=== PATIENT | female | born 1990 | race Caucasian/White ===

== ENCOUNTER 2018-06-07 16:42 | Emergency (ER) | payer OTHER ==
[2018-06-07 16:55] VITALS: TEMP 97.7
[2018-06-07] MEDS ORDERED: SODIUM CHLORIDE 0.9% 1,000 ML IV STA (17:11)
--- NOTE | 2018-06-07 17:45 | ED ---
Abdominal Pain HPI - General Chief Complaint: Abdominal Pain Stated Complaint: abdominal pain Time Seen by Provider: 06/07/18 17:07 Source: patient Mode of arrival: ambulatory Limitations: no limitations - History of Present Illness Initial Comments: 27-year-old female just past medical history to presenting today for chief complaint of right lower pelvic cramping x 3+ weeks on and off. Patient states that she has had pelvic cramping since her last period which was from May 06 to the . She states that she has had some recent spotting, however has not had full/normal menstruation, she states the pain she has been experiencing in the right lower pelvis following her last period seemed to stick around occurring on and off. She states that with the spotting that past 2 days she has had increased cramping and some mild low back pain-she states it feels consistent with menstruation but slightly increased in intensity, as well as nausea and mild diarrhea, seeing her stools are softer than normal. Patient denies any melena or hematochezia. Patient denies a history of ectopic . She states she was concerned about a spontaneous , or possible ectopic and presented to the emergency department today for evaluation. Upon arrival patient appears comfortable, patient is not writhing in pain she is sitting comfortably patient denies increased pain with ambulation. Remaining ROS (-), patient denies any recent fever, chills, vaginal discharge or odor, shortness of breath, chest pain, pain, vomiting, numbness or tingling, dysuria or hematuria, constipation, headaches or visual changes, or any other complaints. - Related Data Home Medications Medication Instructions Recorded Confirmed No Known Home Medications 06/07/18 06/07/18 Allergies Allergy/AdvReac Type Severity Reaction Status Date / Time Sulfa (Sulfonamide Allergy Unknown Unknown Verified 06/07/18 17:13 Antibiotics) Childhood Review of Systems ROS Statement: Those systems with pertinent positive or pertinent negative responses have been documented in the HPI. ROS Other: All systems not noted in ROS Statement are negative. Past Medical History Past Medical History: No Reported History Additional Past Medical History / Comment(s): Obstetric history: Her first she delivered in 2009, 8#9oz at 40 weeks. Her second was a spontaneous miscarriage. This is her third and she has had care with me since 15 weeks gestation. A neg, abs neg, Rub Imm, RPR NR, Hep B neg. She received rhogam on 09/07/13 and had a normal anatomy US at 18 weeks. EDC was based on a 16 week US. History of Any Multi-Drug Resistant Organisms: None Reported Additional Past Surgical History / Comment(s): myringotomy with tube placement Past Anesthesia/Blood Transfusion Reactions: No Reported Reaction Past Psychological History: No Psychological Hx Reported Smoking Status: Current every day smoker Past Alcohol Use History: Occasional Past Drug Use History: Marijuana General Exam - General Exam Comments Initial Comments: General: The patient is awake and alert, in no distress, and does not appear acutely ill. Eye: +3 mm pupils are equal, round and reactive to light, extra-ocular movements are intact. No nystagmus. There is normal conjunctiva bilaterally. No signs of icterus. Ears, nose, mouth and throat: There are moist mucous membranes and no oral lesions. Neck: The neck is supple, there is no tenderness or JVD. Cardiovascular: There is a regular rate and rhythm. No murmur, rub or gallop is appreciated. Respiratory: Lungs are clear to auscultation, respirations are non-labored, breath sounds are equal. No wheezes, stridor, rales, or rhonchi. Gastrointestinal: No noted diaphoresis, jaundice, pallor, protecting postures or squirming. Symmetrical pigmentation of abdomen without signs of inflammation.. Umbilicus mildline, inverted without swelling. No dilated veins. No noted abdominal distention. No visible masses. No peristalsis, aortic pulsations, or ventral hernia. Bowel sounds audible in all 4 quadrants, unremarkable. Patient is tender to deep palpation of the right lower pelvic region. Liver edge, not palpable. Spleen edge, right and left kidney not palpable. Superior bladder margin non-tender. Special Testing: Negative [place], Rovsing, McBurney, Glenn, cutaneous hyperesthesia. Negative Heel Jar test. No CVA tenderness. Digital rectal exam deferred. Negative tierney turners or cullens sign Pelvic Exam: Normal female hair pattern, no external lesions. Vaginal mucosa pink and moist well rugated. No edema. Cervical os closed. No discharge coming from os. Small amount of thin clear to white discharge in vault, no vaginal bleeding. no cervical motion tenderness. No adnexal tenderness. Musculoskeletal: Normal ROM, no tenderness. Strength 5/5. Sensation intact. Pulses equal bilaterally 2+. Neurological: A&O x 3. CN II-XII intact, There are no obvious motor or sensory deficits. Coordination appears grossly intact. Speech is normal. Skin: Skin is warm and dry and no rashes or lesions are noted. Psychiatric: Cooperative, appropriate mood & affect, normal judgment. Limitations: no limitations Course Vital Signs 06/07/18 06/07/18 16:52 19:53 Temperature 97.7 F Pulse Rate 92 89 Respiratory 18 16 Rate Blood Pressure 119/56 105/67 O2 Sat by Pulse 98 97 Oximetry Medical Decision Making - Medical Decision Making 27-year-old female with no significant past medical history presenting today for chief complaint of right lower pelvic pain. Pelvic ultrasound did reveal a probable hemorrhagic cyst of the right side. Patient did not have significant tenderness on pelvic examination, no adnexal tenderness concerning for serious acute process. The patient had benign abdominal exam. Ultrasound of the appendix was obtained revealing a 4mm tubular structure there is no evidence of fecalith and or inflammatory signs or symptoms. I had very low suspicion for appendicitis. Patient does not have leukocytosis., Afebrile. At this time I do feel ovarian cyst of the right side most likely cause of patient's pain, patient is around the time of menses according to last recorded period. At this time I do feel patient is stable for discharge with [employer] and primary care follow-up. Return parameters were discussed at length the patient verbalized understanding. I did discuss this case with attending provider Dr. Solis, he agreed depression plan given presentation of patient. Patient discharged in stable condition appearing well. - Lab Data Result diagrams: 06/07/18 17:38 06/07/18 17:38 Lab Results 06/07/18 06/07/18 06/07/18 Range/Units 17:38 17:38 17:38 WBC 8.2 (3.8-10.6) k/uL RBC 5.17 (3.80-5.40) m/uL Hgb 15.3 (11.4-16.0) gm/dL Hct 46.9 H (34.0-46.0) % MCV 90.8 (80.0-100.0) fL MCH 29.6 (25.0-35.0) pg MCHC 32.5 (31.0-37.0) g/dL RDW 12.0 (11.5-15.5) % Plt Count 361 (150-450) k/uL Neutrophils % 70 % Lymphocytes % 21 % Monocytes % 5 % Eosinophils % 1 % Basophils % 1 % Neutrophils # 5.8 (1.3-7.7) k/uL Lymphocytes # 1.7 (1.0-4.8) k/uL Monocytes # 0.4 (0-1.0) k/uL Eosinophils # 0.1 (0-0.7) k/uL Basophils # 0.1 (0-0.2) k/uL Sodium 141 (137-145) mmol/L Potassium 4.2 (3.5-5.1) mmol/L Chloride 104 (98-107) mmol/L Carbon Dioxide 26 (22-30) mmol/L Anion Gap 11 mmol/L BUN 13 (7-17) mg/dL Creatinine 0.65 (0.52-1.04) mg/dL Est GFR (CKD-EPI)AfAm >90 (>60 ml/min/1.73 sqM) Est GFR (CKD-EPI)NonAf >90 (>60 ml/min/1.73 sqM) Glucose 90 (74-99) mg/dL Calcium 10.6 H (8.4-10.2) mg/dL Total Bilirubin 1.2 (0.2-1.3) mg/dL AST 19 (14-36) U/L ALT 30 (9-52) U/L Alkaline Phosphatase 55 (38-126) U/L Total Protein 8.1 (6.3-8.2) g/dL Albumin 4.9 (3.5-5.0) g/dL Amylase 236 H (30-110) U/L Lipase 45 (23-300) U/L Urine Color Urine Appearance (Clear) Urine pH (5.0-8.0) Ur Specific [place] (1.001-1.035) Urine Protein (Negative) Urine Glucose (UA) (Negative) Urine Ketones (Negative) Urine Blood (Negative) Urine Nitrite (Negative) Urine Bilirubin (Negative) Urine Urobilinogen (<2.0) mg/dL Ur Leukocyte Esterase (Negative) Ur Squamous Epith Cells (0-4) /hpf Urine Bacteria (None) /hpf Urine Mucus (None) /hpf Urine HCG, Qual Not Detected (Not Detectd) Trichomonas Ag (Rapid) (Negative) 06/07/18 06/07/18 Range/Units 17:38 19:00 WBC (3.8-10.6) k/uL RBC (3.80-5.40) m/uL Hgb (11.4-16.0) gm/dL Hct (34.0-46.0) % MCV (80.0-100.0) fL MCH (25.0-35.0) pg MCHC (31.0-37.0) g/dL RDW (11.5-15.5) % Plt Count (150-450) k/uL Neutrophils % % Lymphocytes % % Monocytes % % Eosinophils % % Basophils % % Neutrophils # (1.3-7.7) k/uL Lymphocytes # (1.0-4.8) k/uL Monocytes # (0-1.0) k/uL Eosinophils # (0-0.7) k/uL Basophils # (0-0.2) k/uL Sodium (137-145) mmol/L Potassium (3.5-5.1) mmol/L Chloride (98-107) mmol/L Carbon Dioxide (22-30) mmol/L Anion Gap mmol/L BUN (7-17) mg/dL Creatinine (0.52-1.04) mg/dL Est GFR (CKD-EPI)AfAm (>60 ml/min/1.73 sqM) Est GFR (CKD-EPI)NonAf (>60 ml/min/1.73 sqM) Glucose (74-99) mg/dL Calcium (8.4-10.2) mg/dL Total Bilirubin (0.2-1.3) mg/dL AST (14-36) U/L ALT (9-52) U/L Alkaline Phosphatase (38-126) U/L Total Protein (6.3-8.2) g/dL Albumin (3.5-5.0) g/dL Amylase (30-110) U/L Lipase (23-300) U/L Urine Color Light Yellow Urine Appearance Cloudy H (Clear) Urine pH 5.5 (5.0-8.0) Ur Specific [place] 1.004 (1.001-1.035) Urine Protein Negative (Negative) Urine Glucose (UA) Negative (Negative) Urine Ketones Negative (Negative) Urine Blood Negative (Negative) Urine Nitrite Negative (Negative) Urine Bilirubin Negative (Negative) Urine Urobilinogen <2.0 (<2.0) mg/dL Ur Leukocyte Esterase Moderate H (Negative) Ur Squamous Epith Cells 3 (0-4) /hpf Urine Bacteria Occasional H (None) /hpf Urine Mucus Rare H (None) /hpf Urine HCG, Qual (Not Detectd) Trichomonas Ag (Rapid) Negative (Negative) Disposition Clinical Impression: Hemorrhagic cyst of right ovary, Pelvic pain Disposition: HOME SELF-CARE Condition: Good Instructions (If sedation given, give patient instructions): Ovarian Cyst (ED) Additional Instructions: Please use medication as discussed. Please follow-up with family doctor in the next 2 days, please follow-up with OBGYN in next week. Please return to emergency room if the symptoms increase or worsen or for any other concerns. Is patient prescribed a controlled substance at d/c from ED?: No Referrals: Carlos Cooper MD [Primary Care Provider] - 1-2 days Tran Holman DO [Doctor of Osteopathic Medicine] - 1-2 days Time of Disposition: 19:25
[2018-06-07 17:52] LABS: Basophils # (A) 0.1 k/uL (0-0.2); Basophils % (A) 1 %; Eosinophils # (A) 0.1 k/uL (0-0.7); Eosinophils % (A) 1 %; HCT 46.9 % (34.0-46.0); HGB 15.3 gm/dL (11.4-16.0); Lymphocytes # (A) 1.7 k/uL (1.0-4.8); Lymphocytes % (A) 21 %; MCH 29.6 pg (25.0-35.0); MCHC 32.5 g/dL (31.0-37.0); MCV 90.8 fL (80.0-100.0); Mean Platelet Volume 6.8; Monocytes # (A) 0.4 k/uL (0-1.0); Monocytes % (A) 5 %; Neutrophils # (A) 5.8 k/uL (1.3-7.7); Neutrophils % (A) 70 %; Platelet Count 361 k/uL (150-450); RBC 5.17 m/uL (3.80-5.40); WBC 8.2 k/uL (3.8-10.6)
[2018-06-07 17:56] LABS: Appearance,Urine Cloudy (Clear); Bacteria,Urine Occasional /hpf; Bilirubin,Urine Negative (Negative); Blood,Urine Negative (Negative); Color,Urine Light Yellow; Glucose,Urine (UA) Negative (Negative); Ketones,Urine Negative (Negative); Leukocyte Esterase,Urine Moderate (Negative); Mucus,Urine Rare /hpf; Nitrite,Urine Negative (Negative); PH, Urine 5.5 (5.0-8.0); Protein,Urine Negative (Negative); Specific Gravity,Urine 1.004 (1.001-1.035); Squamous Epithelial Cell,Urine 3 /hpf (0-4); Urobilinogen,Urine <2.0 mg/dL (<2.0)
[2018-06-07 18:09] LABS: ALT 30 U/L (9-52); AST 19 U/L (14-36); Albumin 4.9 g/dL (3.5-5.0); Alkaline Phosphatase 55 U/L (38-126); Amylase 236 U/L (30-110); Anion Gap 11 mmol/L; Blood Urea Nitrogen 13 mg/dL (7-17); Calcium 10.6 mg/dL (8.4-10.2); Carbon Dioxide 26 mmol/L (22-30); Chloride 104 mmol/L (98-107); Glucose 90 mg/dL (74-99); Lipase 45 U/L (23-300); Potassium 4.2 mmol/L (3.5-5.1); Sodium 141 mmol/L (137-145); Total Bilirubin 1.2 mg/dL (0.2-1.3); Total Protein 8.1 g/dL (6.3-8.2)
--- NOTE | 2018-06-07 19:06 | US ---
EXAMINATION TYPE: US abdomen APPY DATE OF EXAM: 06/07/2018 COMPARISON: NONE CLINICAL HISTORY: Pain. RLQ pain. APPENDIX AP Diameter (normal < 6mm): 4 mm Measured outer wall to outer wall. Is the appendix seen in its entirety from the proximal cecum to distal end: No Is the appendix compressible: Yes Does the appendix wall appear hypervascular: No Is an appendicolith present: No Is there inflammatory changes or free fluid present: No Appendix not seen in its entirety. IMPRESSION: Appendix not definitely seen. No evidence of appendicitis. No solid or cystic mass or fr ee fluid.
--- NOTE | 2018-06-07 19:13 | US ---
EXAMINATION TYPE: US transvaginal DATE OF EXAM: 06/07/2018 COMPARISON: NONE CLINICAL HISTORY: Pain. RLQ Pain TECHNIQUE: Transvaginal (TV). EXAM MEASUREMENTS: Uterus: 8.7 x 4.7 x 5.6 cm Endometrial Stripe: 0.9 cm Right Ovary: 4.3 x 2.7 x 3.3 cm Left Ovary: 5.4 x 2.9 x 3.2 cm 1. Uterus: Anteverted wnl 2. Endometrium: wnl 3. Right Ovary: Hypoechoic area seen 3.1 x 2.4 x 3.4cm. 4. Left Ovary: Multiple cystic areas seen largest 2 this measures 3.4 x 2.4 cm. .4 x 2.2 x 2.2cm. Spectral, color and waveform doppler imaging shows good arterial and venous flow within the ovaries ; there is no evidence for ovarian torsion. 5. Bilateral Adnexa: wnl 6. Posterior cul-de-sac: wnl IMPRESSION: No evidence of ovarian torsion. Bilateral multiple ovarian cysts. No solid adnexal mass. There is a hypoechoic oval-shaped area on the right ovary that could be a hemorrhagic ovarian cyst.
[2018-06-07 19:54] VITALS: BP 105/67; PULSE 89; RESP 16
[2018-06-08 15:17] LABS: N. gonorrhoeae,PCR Negative (Neg,Equiv); Neisseria Source Vagina
[2018-06-08 15:22] LABS: C. trachomatis,PCR Negative (Neg,Equiv); Chlamydia trachomatis Source Vagina
== END 2018-06-07 19:54 | disposition home or self-care (01) ==
LOC: EC 16:42
DX: N83.201 Unspecified ovarian cyst, right side (principal); F17.200 Nicotine dependence, unspecified, uncomplicated; Z88.2 Allergy status to sulfonamides
CPT/HCPCS: 36415; 76705; 76830; 80053; 81001; 81025; 82150; 83690; 85025; 87070; 87205; 87491; 87591; 87808; 93975; 96360; 99284

== ENCOUNTER → 2023-02-09 | Outpatient (CLI) | payer OTHER ==
--- NOTE | 2023-02-09 08:53 | US ---
EXAMINATION TYPE: US abdomen complete DATE OF EXAM: 02/09/2023 COMPARISON: NONE CLINICAL INDICATION: Female, 32 years old with history of R74.8 ABNORMAL LIVER ENZYMES; TECHNIQUE: Multiple sonographic images of the abdomen are obtained. FINDINGS: EXAM MEASUREMENTS: Liver Length: 15.5 cm Gallbladder Wall: 0.2 cm CBD: 0.4 cm Spleen: 10.3 cm Right Kidney: 10.7 x 4.8 x 5.7 cm Left Kidney: 11.2 x 5.2 x 4.1 cm Pancreas: wnl Liver: wnl Gallbladder: wnl Evidence for sonographic Saleem's sign: no CBD: wnl Spleen: wnl Right Kidney: wnl Left Kidney: wnl Upper IVC: wnl Abd Aorta: wnl The liver is homogenous. The intrahepatic portion of the IVC and proximal abdominal aorta are within normal limits. There is no evidence of cholelithiasis. Common bile duct is unremarkable. The visu alized portions of the pancreas are homogenous. The spleen is unremarkable. Kidneys are symmetric a nd free of hydronephrosis. No renal lesions are seen. IMPRESSION: No significant abnormality appreciated.
== END | disposition home or self-care (01) ==
LOC: RADUSWWP 08:25
PROVIDERS: ATTEND Internal Medicine Gastroenterology
DX: R74.8 Abnormal levels of other serum enzymes (principal)
CPT/HCPCS: 76700

== ENCOUNTER → 2023-06-29 | Outpatient (CLI) | payer OTHER ==
--- NOTE | 2023-06-29 09:27 | CT ---
EXAMINATION TYPE: CT sinus wo con DATE OF EXAM: 06/29/2023 COMPARISON: None HISTORY: 33-year-old female H66.[address] DLP: 410.2 mGycm Automated exposure control for dose reduction was used. TECHNIQUE: Noncontrast axial views of the paranasal sinuses were obtained. Coronal and sagittal recon structions performed. FINDINGS: PARANASAL SINUSES: Trace mucosal thickening ethmoid air cells. Trace mucosal thickening floor of the left maxillary sinus. Mild lobulated mucosal thickening floor o f the right maxillary sinus. Frontal and sphenoid sinuses appear well pneumatized. There is no air-fluid level. Reactive gael- osteogenesis is not seen. There is no destruction of the osseous warren of the paranasal sinuses. THE NASAL CAVITY: The osteomeatal complexes are patent. Slight undulating nasal septum. A left-sided nose ring is present The imaged brain, sella, skull base and orbits are normal in appearance. There is partial opacification of the right greater than left mastoid air cells and partial opacifica tion in the right middle ear cavity as well. Reformatted images confirm above findings. IMPRESSION: 1. Scattered trace to mild chronic ethmoid and maxillary sinus disease. 2. Partial opacification of the bilateral mastoid air cells and also the right middle ear cavity. Cor relate for any pain that would suggest mastoiditis or otitis media, particularly on the right.
== END | disposition home or self-care (01) ==
LOC: RADCTMAIN 08:33
PROVIDERS: ATTEND Student in an Organized Health Care Education/Training Program
DX: J32.0 Chronic maxillary sinusitis (principal); J32.2 Chronic ethmoidal sinusitis; H66.90 Otitis media, unspecified, unspecified ear
CPT/HCPCS: 70486